=== PATIENT | female | born 1960 | race African-American/Black ===

== ENCOUNTER 2019-11-12 10:50 | Observation (INO) | payer OTHER, SELFPAY ==
[2019-11-12] VITALS (11 sets, daily range): BP systolic 116–152; BP diastolic 76–91; PULSE 54–67; RESP 15–20; TEMP 36.2–37.2; O2SAT 98–100; BMI 29.6
--- NOTE | ~2019-11-12 | NM_ITS ---
EXAMINATION: NM beryl stress w perfusion DATE: 11/13/2019 10:26 INDICATION: Chest pain. Hypertension. Tobacco abuse. TECHNIQUE: Rest images were obtained following intravenous administration of 10.6 mCi Tc99m tetrofosm in (Myoview). The patient was infused intravenously with Lexiscan (Regadenoson). Then, 30.4 mCi Tc99m tetrofosmin (Myoview) was administered intravenously, and stress images were obtained. Data was tray nstructed into short axis and horizontal and vertical long axis SPECT images. Gated SPECT images were also obtained. COMPARISON: None. FINDINGS: There is no definite reversible or fixed perfusion abnormality to suggest ischemia or infar ction. There is normal left ventricular chamber size, wall motion and ejection fraction. Left ventr icular ejection fraction measures >70%. IMPRESSION: 1. Normal myocardial perfusion at rest and during stress. 2. Left ventricular ejection fraction measuring >70%. Reviewed, dictated and finalized at location A.
--- NOTE | ~2019-11-12 | XR_ITS ---
EXAMINATION: XR chest 2V 11/12/2019 11:16 INDICATION: Chest pain with shortness of breath PROCEDURE: 2 view chest COMPARISON: 01/07/2019 FINDINGS: The lungs are clear. The cardiomediastinal silhouette is within normal limits. There are no pleural effusions. There is no pneumothorax suspected. IMPRESSION: 1: NO ACUTE CARDIOPULMONARY DISEASE. Reviewed, dictated and finalized at location A.
--- NOTE | 2019-11-12 10:56 | ED.GENADULT ---
HPI - General Adult General Chief complaint: Chest Pain Stated complaint: chest pain Time Seen by Provider: 11/12/19 10:51 History of Present Illness HPI narrative: Patient is a 59-year-old male who was referred to the ER by her PCP for chest pain. Patient began having chest pain yesterday that was a pressure in the center of her chest moving up into her neck bilaterally. This was pretty constant throughout the day yesterday and was worsened by any type of exertion or going up stairs. She had mild shortness of breath but no diaphoresis/nausea/vomiting. Patient has history of hypertension/hyperlipidemia/tobacco use and a brother who had an NC at the age of 60. Patient does not have a previous cardiac history herself. Today she has been having the pain as well but it is more intermittent. She reports her pain was 8/10 yesterday and today it was 3/10. No association with eating or drinking. Is not modified by position change. Related Data Home Medications Medication Instructions Recorded Confirmed aspirin [Adult Low Dose Aspirin] 81 mg PO DAILY 05/09/19 05/13/19 quinapril 20 mg PO DAILY 05/09/19 05/09/19 hydrochlorothiazide 25 mg PO DAILY 05/13/19 05/13/19 albuterol sulfate INHALATION 11/12/19 atorvastatin 10 mg PO DAILY 11/12/19 cholecalciferol (vitamin D3) 10 mcg PO DAILY 11/12/19 [Vitamin D3] fluticasone furoate-vilanterol INHALATION 11/12/19 [Breo Ellipta] multivitamin [Multiple Vitamins] 1 tablet PO DAILY 11/12/19 Allergies Allergy/AdvReac Type Severity Reaction Status Date / Time No Known Allergies Allergy Verified 11/12/19 11:01 Review of Systems Review of Systems: All systems reviewed & are unremarkable except as noted in HPI and below Constitutional: Constitutional: Denies chills, Denies fever(s) and Denies weakness ENT: Denies nasal congestion and Denies sore throat Cardiovascular: Cardiovascular: Reports chest pain, Denies rapid heart rate and Reports radiating jaw, neck or arm pain Respiratory: Respiratory: Denies cough, Reports dyspnea and Denies wheezing Gastrointestinal: Gastrointestinal: Denies abdominal pain, Denies nausea and Denies vomiting [facility] Past Medical History Medical History (Updated 11/12/19 @ 12:59 by Julio Menjivar MD) Asthma B12 deficiency Hyperlipidemia Hypertension Surgical History Surgical History (Updated 11/12/19 @ 09:42 by Cece Enamorado MD) H/O bilateral breast reduction surgery H/O colonoscopy 05-14-19 klucka/hyperplastic polyp ascending and descending colon /nonspecific colitis History of hysterectomy Family History Family History (Updated 05/08/18 @ 15:34 by DOCTOR UNKNOWN) Sibling Family history of transient ischemic attacks, Onset Age: 50 Acute myocardial infarction, Onset Age: 60 Family history of coronary artery disease, Onset Age: 53 Family history of malignant neoplasm of stomach Malignant neoplasm of prostate Mother Diabetes mellitus Hypertension Family history of congestive heart failure Other Family history of cardiovascular disease Family history of lung cancer Family history of lupus erythematosus Family history of malignant neoplasm of breast Social History Social History (Updated 05/13/19 @ 11:36 by Maria E Hardy, SPORTS INFORMATION DIRECTOR) Smoking packs per day: 0.75 Smoking cigarettes per day: 15.0 Years smoked: 30 Smoking pack-years: 22.50 Smoking status: Current every day smoker Tobacco type: cigarettes Alcohol intake: current Substance use: never Gender identity (if verbalized by the patient): Female Exam Narrative: Exam Narrative: GENERAL: Well-appearing, well-nourished, and in no acute distress. HEAD: Normocephalic, atraumatic. ENT: Mucous membranes moist. CHEST: Clear to auscultation. No respiratory distress. HEART: Regular rate and rhythm. Normal peripheral pulses. ABDOMEN: Soft, nontender, nondistended. EXTREMITIES: Normal range of motion. No edema. SKIN: Warm, dry, no
--- NOTE | 2019-11-12 10:58 | ECG_ITS ---
Measurements Intervals [place] Rate: 60 P: 25 OR: 176 QRS: 22 QRSD: 88 T: 26 QT: 379 QTc: 380 Interpretive Statements SINUS RHYTHM BASELINE WANDER- V2-V3 NORMAL ECG Electronically Signed On 11-12-2019 12:31:52 CDT by Burke Brooks D.O.
[2019-11-12] MEDS: ASPIRIN 81 MG CHEWABLE TABLET 324 MG PO (11:02)
[2019-11-12 11:13] LABS: Basophils Absolute Auto 0.1 K/mm3 (0.0-0.1); Basophils Percent Auto 0.9 % (0.2-1.2); Eosinophils Absolute Auto 0.1 K/mm3 (0-0.3); Eosinophils Percent Auto 1.4 % (0-4.4); Hemoglobin 14.6 g/dL (12.0-15.0); Immature Granulocyte Absolute 0.03 K/mm3 (0.00-0.031); Immature Granulocyte Percent A 0.3 % (0-0.5); Lymphocytes Absolute Auto 3.68 K/mm3 (0.9-3.2); Lymphocytes Percent Auto 40.2 % (18.3-44.2); Mean Corpuscular Hemoglobin 28.5 pg (26-34); Mean Platelet Volume 10.1 fl (7.4-10.4); Monocytes Absolute Auto 0.9 K/mm3 (0.1-0.6); Monocytes Percent Auto 10.1 % (2.6-8.5); Neutrophils Absolute Auto 4.3 K/mm3 (1.3-6.7); Neutrophils Percent Auto 47.1 % (45.5-73.1); Platelet Count Result 301 k/mm3 (150-375); Red Blood Count 5.12 M/mm3 (4.2-5.4); Red Cell Distribution Width 13.2 % (11.5-14.5); White Blood Count 9.2 K/mm3 (4.5-10.0)
[2019-11-12 11:23] LABS: Prothrombin Time 12.9 Seconds (11.1-14.7)
[2019-11-12 11:24] LABS: Partial Thromboplastin Time 30.5 SECONDS (22.3-36.8)
[2019-11-12 11:25] LABS: Blood Urea Nitrogen 14 mg/dL (7-17); Calcium 10.3 mg/dL (8.4-10.2); Carbon Dioxide 28 mmol/L (22-30); Chloride 105 mmol/L (98-107); Estimated CRCL calculation 71 ml/min; Estimated Glomerular Filt Rate > 60; Glucose 102 mg/dL (65-105); Potassium 3.1 mmol/L (3.4-5.0); Sodium 141 mmol/L (137-145)
[2019-11-12 11:37] LABS: Troponin I 0.018 ng/mL (0.000-0.034)
--- NOTE | 2019-11-12 14:05 | ECHO_ITS ---
Patient Info Name: Yolanda Franklin Age: 59 years : 1960 Gender: Female Ht: 65 in Wt: 178 lbs BSA: 1.95 m2 HR: 55 bpm BP: 128 / 76 mmHg Heart Rhythm: Bradycardia Technical Quality: Good Exam Date: 11/12/2019 2:45 PM Exam Location: [facility] Patient Status: Inpatient Admit Date: 11/12/2019 Staff Ordering Physician: Tesfaye Lezama MD (isa/odalys) Telecom Engineer: Benjie Zuniga RDCS Attending Provider: Robert Azevedo MD Exam Type: CA echo doppler color flow Study Info Indications R07.9 - Chest pain, unspecified Complete two-dimensional, color flow and Doppler transthoracic echocardiogram is performed. Strain analysis performed. History/Risk Factors Chest pain; HTN. Summary 1. Left ventricular systolic function is normal, estimated at 55-60%. 2. There is borderline increased left ventricular wall thickness. 3. There is mild aortic valve sclerosis. 4. There is no aortic valve stenosis. 5. There is no mitral valve regurgitation. 6. There is no pericardial effusion. Left Ventricle Left ventricular chamber dimension is normal. Left ventricular systolic function is normal, estimated at 55-60%. There is borderline increased left ventricular wall thickness. Left ventricular septal wall motion is normal. The left ventricular diastolic function is normal. Right Ventricle Right ventricular chamber dimension is normal. Right ventricular systolic function is normal. Left Atria Left atrial chamber dimension is normal. Right Atria Right atrial chamber dimension is normal. Aortic Valve The aortic valve is trileaflet. There is mild aortic valve sclerosis. There is no aortic valve stenosis. There is no aortic valve regurgitation. Pulmonic Valve The pulmonic valve is not well visualized. There is no pulmonic valve stenosis. There is no pulmonic regurgitation. Mitral Valve The mitral valve has normal leaflets. There is no mitral valve stenosis. There is no mitral valve regurgitation. Tricuspid Valve The tricuspid valve leaflets are normal. There is no significant tricuspid valve stenosis. There is no tricuspid valve regurgitation. No pulmonary hypertension. Pericardium/Pleural The pericardium appears normal. There is no pericardial effusion. Inferior Vena Cava Normal inferior vena cava with >50% collapse upon inspiration. Aorta The aortic root size at the sinus of Valsalva is normal. The prox ascending aorta size is normal. Left Ventricular Outflow Tract Name Value Normal LVOT 2D LVOT Diameter 1.7 cm LVOT Doppler LVOT Peak Gradient 4 mmHg LVOT Mean Gradient 2 mmHg LVOT VTI 20 cm LVOT VTI/AV VTI Ratio 0.6 LVOT Stroke Volume 45 ml LVOT CO 2.4 l/min LVOT CI 1.2 l/min/m2 Mitral Valve Name Value Normal --
--- NOTE | 2019-11-12 14:05 | PM.IMHP ---
H&P: HPI History of Present Illness Chief complaint: chest pain Narrative: Yolanda Franklin is a 59 year old female with h/o HTN, GERD and active tobacco abuse who presented with chest pain She reports chest pain that she describes as aching in the middle of the chest and radiates to her jaw. She had it all day long yesterday then resolved after she took ASA. It woke her up last night at 2 am so she went to see her PCP who referred her to go to ER. Pain resolved now. She denies nausea. She admits to diaphoresis that she contributes to menopause. She has stable exertional dyspnea with history of asthma and tobacco abuse. First trop is negative. Labs otherwise notable for K 3.1. EKG with normal sinus rhythm with no ST changes. She smokes ~ 2/3 pack a day. Brother had NM in his 60s. Review of Systems Review of Systems: All systems reviewed & are unremarkable except as noted in HPI and below Constitutional: Constitutional: Denies fatigue and Denies headache(s) Eyes: Eyes: Denies blurry vision ENT: Reports Normal hearing present and Denies headache(s) Cardiovascular: Cardiovascular: Reports chest pain, Denies diaphoresis, Denies pedal edema, Denies leg edema, Denies lightheadedness, Denies palpitations and Denies dyspnea Respiratory: Respiratory: Denies cough and Denies dyspnea Gastrointestinal: Gastrointestinal: Denies abdominal pain Musculoskeletal: Musculoskeletal: Denies back pain Neurologic: Reports Normal hearing present and Denies headache(s) Psychiatric: Psychiatric: Denies anxiety Endocrine: Endocrine: Denies fatigue and Denies palpitations [facility] Past Medical History Medical History Asthma B12 deficiency Hyperlipidemia Hypertension Surgical History Surgical History (Updated 11/12/19 @ 09:42 by Cece Enamorado MD) H/O bilateral breast reduction surgery H/O colonoscopy 05-14-19 klucka/hyperplastic polyp ascending and descending colon /nonspecific colitis History of hysterectomy Family History Family History (Updated 05/08/18 @ 15:34 by DOCTOR UNKNOWN) Sibling Family history of transient ischemic attacks, Onset Age: 50 Acute myocardial infarction, Onset Age: 60 Family history of coronary artery disease, Onset Age: 53 Family history of malignant neoplasm of stomach Malignant neoplasm of prostate Mother Diabetes mellitus Hypertension Family history of congestive heart failure Other Family history of cardiovascular disease Family history of lung cancer Family history of lupus erythematosus Family history of malignant neoplasm of breast Social History Social History (Updated 05/13/19 @ 11:36 by Maria E Hardy, AIR CONDITIONING SHEET METAL INSTALLER) Smoking packs per day: 0.75 Smoking cigarettes per day: 15.0 Years smoked: 30 Smoking pack-years: 22.50 Smoking status: Current every day smoker Tobacco type: cigarettes Alcohol intake: current Substance use: never Gender identity (if verbalized by the patient): Female Meds Home Medications and Allergies Home Medications Medication Instructions Recorded Confirmed Type aspirin [Adult Low Dose Aspirin] 81 mg PO DAILY 05/09/19 05/13/19 History quinapril 20 mg PO DAILY 05/09/19 05/09/19 History hydrochlorothiazide 25 mg PO DAILY 05/13/19 05/13/19 History albuterol sulfate INHALATION 11/12/19 History atorvastatin 10 mg PO DAILY 11/12/19 History cholecalciferol (vitamin D3) 10 mcg PO DAILY 11/12/19 History [Vitamin D3] fluticasone furoate-vilanterol INHALATION 11/12/19 History [Breo Ellipta] multivitamin [Multiple Vitamins] 1 tablet PO DAILY 11/12/19 History Allergies Allergy/AdvReac Type Severity Reaction Status Date / Time No Known Allergies Allergy Verified 11/12/19 11:01 Vital Signs Vital Signs - 24 hr 11/12/19 10:52 11/12/19 10:59 11/12/19 11:25 Temperature 36.9 C Pulse Rate 62 64 58 L Respiratory Rate 18 17 Blood Pressure 152/89 H 13
--- NOTE | 2019-11-12 14:29 | ECG_ITS ---
Measurements Intervals [place] Rate: 53 P: 17 AL: 178 QRS: 11 QRSD: 83 T: 17 QT: 425 QTc: 400 Interpretive Statements SINUS BRADYCARDIA BORDERLINE T WAVE ABNORMALITY- INFERIOR LEADS BORDERLINE ECG Electronically Signed On 11-12-2019 16:02:59 CDT by Burke Brooks D.O.
[2019-11-12 15:04] LABS: Troponin I 0.016 ng/mL (0.000-0.034)
--- NOTE | 2019-11-12 17:00 | ECG_ITS ---
Measurements Intervals [place] Rate: 58 P: 25 HI: 197 QRS: 11 QRSD: 86 T: 9 QT: 394 QTc: 389 Interpretive Statements SINUS BRADYCARDIA EARLY PRECORDIAL R/S TRANSITION BORDERLINE T WAVE ABNORMALITY- INFERIOR LEADS BORDERLINE ECG Electronically Signed On 11-13-2019 7:06:02 CDT by Burke Brooks D.O.
[2019-11-12 17:44] LABS: Troponin I 0.012 ng/mL (0.000-0.034)
[2019-11-13] VITALS (7 sets, daily range): BP systolic 126–134; BP diastolic 77–85; PULSE 56–70; RESP 14–17; TEMP 36.3; O2SAT 99–100
--- NOTE | 2019-11-13 | EST_ITS ---
Patient Info Name: Yolanda Franklin Age: 59 years : 1960 Gender: Female Ht: 65 in Wt: 178 lbs BSA: 1.95 m2 Exam Date: 11/13/2019 9:06 AM Patient Status: Outpatient Admit Date: 11/12/2019 Staff Ordering Physician: Robert Azevedo MD Attending Provider: Robert Azevedo MD Exercise Technologist: Rico Ndiaye RDCS, RT Exercise Physician: DR STEVEN Exam Type: CA stress beryl w NM Study Info Indications R07.89 - Other chest pain A regadenoson stress test was performed. Summary 1. Patient exercised on treadmill using jasmeet protocol for 5 minutes and 50 seconds and had to stop due to dyspnea and chest pressure. She could not achieve 85% of max age predicted heart rate hence stress test was converted to chemical stress test using 0.4 mg of regadenoson (lexiscan). Heart rate increase to 120 following lexiscan injection. EKG showed normal sinus rhythm at rest. No ST changes noted following lexiscan injection. Stress EKG is negative for ischemia. Nuclear part of the stress test to be reported separately. Protocol: Lexiscan Stress ECG Details Stage: REST Duration (min): 0 min : 50 sec HR (bpm): 65 SBP (mmHg): 118 DBP (mmHg): 84 Stage: REST Duration (min): 2 min : 0 sec HR (bpm): 66 SBP (mmHg): 118 DBP (mmHg): 84 Stage: STAGE 1 Duration (min): 0 min : 59 sec HR (bpm): 108 SBP (mmHg): 129 DBP (mmHg): 79 Stage: RECOVERY Duration (min): 1 min : 0 sec HR (bpm): 118 SBP (mmHg): 129 DBP (mmHg): 79 Stage: RECOVERY Duration (min): 2 min : 0 sec HR (bpm): 109 SBP (mmHg): 129 DBP (mmHg): 79 Stage: RECOVERY Duration (min): 3 min : 0 sec HR (bpm): 108 SBP (mmHg): 131 DBP (mmHg): 74 Stage: RECOVERY Duration (min): 4 min : 0 sec HR (bpm): 98 SBP (mmHg): 131 DBP (mmHg): 74 Stage: RECOVERY Duration (min): 4 min : 45 sec HR (bpm): 99 SBP (mmHg): 142 DBP (mmHg): 76 Rest HR: 66 bpm Peak HR: 119 bpm Rest Sys BP: 118 mmHg Peak Sys BP: 142 mmHg Max Pred HR: 163 bpm % Max Pred HR: 73 % Target HR: 139 bpm Max RPP: 16,898 bpm*mmHg Total Time: 1 min : 0 sec Rest Batres BP: 84 mmHg Peak Batres BP: 76 mmHg Total Dose: 0.4 mg Report Signatures
[2019-11-13] MEDS: ACETAMINOPHEN 325 MG TABLET 650 MG PO (04:16)
--- NOTE | 2019-11-13 10:20 | PC.NURSE ---
1015-pt has returned from the stress lab. No distress noted. AOx4. Will continue to monitor.
[2019-11-13] MEDS: ATORVASTATIN 10 MG TABLET PO (10:35)
[2019-11-13] MEDS: hydroCHLOROthiazide 25 MG TABLET PO (10:35)
[2019-11-13] MEDS: lisinopriL 20 MG TABLET PO (10:35)
[2019-11-13] MEDS: ASPIRIN 81 MG ENTERIC TABLET PO (10:35)
[2019-11-13] MEDS: NICOTINE (*PBKC) 14 MG PATCH 1 PATCH TRANSDERM (10:35)
--- NOTE | 2019-11-13 10:44 | PM.DS ---
DS: Diagnosis Admitting Diagnosis Admitting Diagnosis: Chest pain, unspecified Discharge Diagnosis (1) Chest pain: Code(s): R07.9 - Chest pain, unspecified Status: Acute Assessment and Plan: Patient presented with chest pain with mixed typical and atypical features of angina EKG shows no ischemic changes. First trop is negative Will follow up with 2 more troponin and serial EKG check 2D echocardiogram If repeat trop rule her out for VT then will proceed with exercise Nuc stress test in am for risk stratification and rule out ischemia given multiple cardiovascular risk factors including age, HTN and active tobacco abuse (2) Benign hypertension: Code(s): I10 - Essential (primary) hypertension Status: Acute Assessment and Plan: Resume antihypertensives as at home (3) Mixed hyperlipidemia: Code(s): E78.2 - Mixed hyperlipidemia Status: Acute Assessment and Plan: continue Atorvastatin (4) Nicotine dependence, unspecified, uncomplicated: Code(s): F17.200 - Nicotine dependence, unspecified, uncomplicated Status: Acute Assessment and Plan: Extensive smoking cessation counseling. okay to use nicotine patch DS: Summary Time Spent with Patient Time attestation: Total time spent providing and/or coordinating discharge services: 59 year old female with h/o HTN, GERD and active tobacco abuse who presented with chest pain She reports chest pain that she describes as aching in the middle of the chest and radiates to her jaw. She had it all day long yesterday then resolved after she took ASA. It woke her up last night at 2 am so she went to see her PCP who referred her to go to ER. Pain resolved now. She denies nausea. She admits to diaphoresis that she contributes to menopause. She has stable exertional dyspnea with history of asthma and tobacco abuse. trop was negative X3. Labs otherwise notable for K 3.1. EKG with normal sinus rhythm with no ST changes. She smokes ~ 2/3 pack a day. Brother had VT in his 60s. She underwent nuc stress test (exercised for 6 minutes but did not achieve 85% of target heart rate, stress test was converted to lexiscan) which showed no evidence of ischemia. She had 2D echo that showed normal EF and no valvular disease Pain is likely none cardiac and possibly musckeloskeletal. Follow up with cardiology in 2-4 weeks Continue antihypertenives as before. Smoking cessation counseling Exam Const: General: no acute distress Eyes: Sclera: sclerae normal Neck: Neck: no JVD Carotids: no bruits Resp: Effort & Inspection: normal respiratory effort Auscultation: clear to auscultation bilaterally Cardio: Rate: regular rate and not tachycardic Rhythm: regular rhythm Heart sounds: no gallops, no murmurs and no rubs Skin: General skin exam: normal color Neuro: Cranial nerves: Yes Normal hearing present Speech: normal speech Extrem: General: normal to inspection and no edema Psych: Affect: normal affect DS: Data Data Completed and Pending Labs on day of discharge: Labs from last 24 hours 11/12/19 11/12/19 11/12/19 17:07 14:21 11:06 WBC RBC Hgb Hct MCV MCH MCHC RDW Plt Count MPV Immature Gran % (Auto) Neut % (Auto) Lymph % (Auto) [place] % (Auto) Eos % (Auto) Baso % (Auto) Lymph # (Auto) [place] # (Auto) Eos # (Auto) Baso # (Auto) Abs Immat Gran (auto) Absolute Neuts (auto) Absolute Nucleated RBC Nucleated RBC % PT INR APTT Sodium 141 Potassium 3.1 L Chloride 105 Carbon Dioxide 28 BUN 14 Creatinine 0.80 Estim Creat Clear Calc 71 Estimated GFR > 60 Glucose 102 Calcium 10.3 H Troponin I 0.012 D 0.016 0.018 11/12/19 11/12/19 11:06 11:06 WBC 9.2 RBC 5.12 Hgb 14.6 Hct 43.0 MCV 84.0 MCH 28.5 MCHC 34.0 RDW 13.2 Plt Count 301 MPV 10.1 Immature Gran
[2019-11-13] MEDS: IBUPROFEN 400 MG TABLET PO (11:13)
[2019-11-13] MEDS: METOPROLOL TARTRATE 50 MG TAB PO (11:13)
--- NOTE | 2019-11-13 11:39 | PC.NURSE ---
1130-pt given D/C orders and instructions. Questions answered and verbalized understanding. AOx4. Ambulated per request to waiting vehicle. No distress noted or verbalized at time of D/C.
== END 2019-11-13 11:30 | disposition home or self-care (01) ==
LOC: ANHED 12:34 → ANHCPC 12:59
PROVIDERS: Admitting Provider Specialist; Emergency Provider Emergency Medicine; PCP Family Medicine; Visit Provider Internal Medicine
DX: R07.9 Chest pain, unspecified (principal); I10 Essential (primary) hypertension; K21.9 Gastro-esophageal reflux disease without esophagitis; J45.909 Unspecified asthma, uncomplicated; F17.210 Nicotine dependence, cigarettes, uncomplicated; E78.2 Mixed hyperlipidemia
CPT/HCPCS: 36415; 71046; 78452; 80048; 84484; 85025; 85610; 85730; 93005; 93017; 93306; 96374; 99285; A9270; A9502; G0378; J2785

== ENCOUNTER 2019-12-09 00:34 | Outpatient (CLI) | payer OTHER, SELFPAY ==
[2019-12-09 16:41] LABS: SARS-CoV-2 RNA PCR Negative
== END 2019-12-09 00:35 | disposition home or self-care (01) ==
LOC: ANHCOVIDDT 00:34
PROVIDERS: PCP Family Medicine; Visit Provider Internal Medicine Gastroenterology
DX: Z01.818 Encounter for other preprocedural examination (principal); Z11.59 Encounter for screening for other viral diseases
CPT/HCPCS: 87635; C9803; U0003

== ENCOUNTER 2019-12-11 02:13 | Day surgery (SDC) | payer OTHER, SELFPAY ==
[2019-12-06 09:28] VITALS: BMI 29.3
[2019-12-11 09:15] VITALS: BP 117/76; PULSE 59; RESP 16; TEMP 36.3; O2SAT 100; BMI 29.9
[2019-12-11] MEDS: LACTATED RINGERS 1,000 ML 150 ML IV CONT (09:32)
--- NOTE | 2019-12-11 10:19 | WPDANESEPPF ---
Anes - Initial Pre Proc Eval Procedure: Operation Date: 12/11/19 10:00 Proposed Procedures p Esophagogastroduodenoscopy - Warren Elmore MD Date/Time: 12/11/19 10:19 Surgeon: Warren Elmore MD Pre Op Diagnosis: Abdomen Pain Patient Data Age: 59 Gender: F Height: 5 ft 5 in Weight: 81.5 kg Last Vital Signs Temp 97.4 F L 12/11/19 09:15 Pulse 59 L 12/11/19 09:15 Resp 16 12/11/19 09:15 BP 117/76 12/11/19 09:15 Pulse Ox 100 12/11/19 09:15 Allergies Allergy/AdvReac Type Severity Reaction Status Date / Time No Known Allergies Allergy Verified 12/11/19 09:12 Home Medications Medication Instructions Recorded Confirmed Type aspirin [Adult Low Dose Aspirin] 81 mg PO DAILY 05/09/19 12/06/19 History albuterol sulfate 2 puff INHALATION Q4-6H PRN 11/12/19 12/06/19 History atorvastatin 10 mg PO DAILY 11/12/19 12/06/19 History multivitamin [Multiple Vitamins] 1 tablet PO DAILY 11/12/19 12/06/19 History hydrochlorothiazide 25 mg tablet 25 mg PO DAILY #90 tablet 11/14/19 12/06/19 Rx metoprolol tartrate 50 mg tablet 50 mg PO DAILY #90 tablet 11/14/19 12/06/19 Rx quinapril 20 mg tablet 20 mg PO DAILY #90 tablet 11/14/19 12/06/19 Rx cholecalciferol (vitamin D3) 1,250 1,250 mcg PO WEEKLY #12 cap 11/20/19 12/06/19 Rx mcg (50,000 unit) capsule nitroglycerin 0.4 mg sublingual 0.4 mg SUBLINGUAL Q5M PRN #20 11/20/19 12/06/19 Rx tablet tablet baclofen 5 mg tablet 5 mg PO TID #90 tablet 12/04/19 12/06/19 Rx Patient hx anesthesia problems: none Family hx anesthesia problems: none PMFSH Past Medical History Medical History (Updated 12/11/19 @ 10:19 by Bartolome Bai MD) Asthma B12 deficiency Benign hypertension Epigastric pain Nausea and vomiting in adult Surgical History Surgical History (Updated 11/12/19 @ 09:42 by Cece Enamorado MD) H/O bilateral breast reduction surgery H/O colonoscopy 05-14-19 klucka/hyperplastic polyp ascending and descending colon /nonspecific colitis History of hysterectomy Family History Family History (Updated 05/08/18 @ 15:34 by DOCTOR UNKNOWN) Sibling Family history of transient ischemic attacks, Onset Age: 50 Acute myocardial infarction, Onset Age: 60 Family history of coronary artery disease, Onset Age: 53 Family history of malignant neoplasm of stomach Malignant neoplasm of prostate Mother Diabetes mellitus Hypertension Family history of congestive heart failure Other Family history of cardiovascular disease Family history of lung cancer Family history of lupus erythematosus Family history of malignant neoplasm of breast Social History Social History (Updated 05/13/19 @ 11:36 by Maria E Hardy, ASSOCIATE PROFESSOR OF AUTOMATION) Smoking packs per day: 0.75 Smoking cigarettes per day: 15.0 Years smoked: 30 Smoking pack-years: 22.50 Smoking status: Current every day smoker Tobacco type: cigarettes Alcohol intake: current Substance use: never Gender identity (if verbalized by the patient): Female Anes - Eval Final PreProcedure Day of Procedure 12/11/19 10:19 Patient weight: normal Heart: regular rate and rhythm Lungs: clear to auscultation Airway: Mallampati scale class II Neurological: alert and oriented Last oral intake: >/= 8 hours ASA classification: III Emergent: no Anesthetic plan: proceed Anesthesia type and monitoring: general GIVS and standard monitoring Informed Consent: The patient's anesthetic plan and its attendant risks and benefits were discussed with the patient/family/POA. Questions were solicited and answers provided to the satisfaction of the patient/family/POA.
[2019-12-11] MEDS: BENZOCAINE (*SP) 60 ML SPRAY CAN (HURRICAINE) 1 SPRAY MUCOUS MEM (12:05)
[2019-12-11 12:22] VITALS: BP 153/103; PULSE 89; RESP 20; O2SAT 100
--- NOTE | 2019-12-11 12:23 | WPDHPUPDATE1 ---
History and Physical Update Update Date/Time: 12/11/19 12:23 History and Physical has been reviewed, including an updated exam of the patient. There are NO changes in the patient's condition. Risks, benefits, and alternatives have been discussed and questions answered. Patient agrees to proceed with procedure.
[2019-12-11 12:32] VITALS: BP 123/84; PULSE 83; RESP 20; O2SAT 100
[2019-12-11 12:42] VITALS: BP 118/82; PULSE 63; RESP 20; O2SAT 100
== END 2019-12-11 13:00 | disposition home or self-care (01) ==
PROVIDERS: PCP Family Medicine; Visit Provider Internal Medicine Gastroenterology
PROC: 0DJ08ZZ Inspection of Upper Intestinal Tract, Via Natural or Artificial Opening Endoscopic (ICD-10-PCS; CPT 43235; principal; 2019-12-11 10:00)
DX: K29.50 Unspecified chronic gastritis without bleeding (principal); K21.0 Gastro-esophageal reflux disease with esophagitis; R07.89 Other chest pain; J45.909 Unspecified asthma, uncomplicated; I10 Essential (primary) hypertension; E53.8 Deficiency of other specified B group vitamins; Z79.82 Long term (current) use of aspirin; F17.210 Nicotine dependence, cigarettes, uncomplicated
CPT/HCPCS: 43239; 88305; J2704; J7120

== ENCOUNTER 2020-01-02 10:14 | Outpatient (CLI) | payer OTHER, SELFPAY ==
--- NOTE | ~2020-01-02 | US_ITS ---
EXAMINATION: US abdomen limited EXAM DATE: 01/02/2020 10:39 INDICATION: Epigastric pain. TECHNIQUE: Multiple grayscale and Doppler images of the abdomen right upper quadrant were obtained (levi y a technologist who performed the scan) and subsequently reviewed. There is no prior study for nicky culp. FINDINGS: The pancreatic head and body are normal in appearance. The pancreatic tail is not visualized. The l iver has normal echogenicity and contour. There are no focal liver lesions identified. There is no evidence of intrahepatic biliary duct dilation. Portal venous flow was seen in the hepatopedal, nor mal direction and has normal Doppler waveform. No right-sided hydronephrosis. Common bile duct measures 5 mm, which is normal. The gallbladder wall is normal in thickness, with ex pected amount of distention. No sonographic evidence of pericholecystic fluid. There is no cholelit hiases. Technologist performing exam reports patient did not demonstrate sonographic Ndiaye's sign. Please note that this sign is less reliable in patients who have received pain medication. IMPRESSION: 1. Unremarkable abdominal ultrasound exam. Reviewed, dictated and finalized at location B.
== END 2020-01-02 10:15 | disposition home or self-care (01) ==
PROVIDERS: PCP Family Medicine; Visit Provider Internal Medicine Gastroenterology
DX: R07.89 Other chest pain (principal); R10.13 Epigastric pain
CPT/HCPCS: 76705

== ENCOUNTER → 2020-05-20 12:13 | Outpatient (CLI) | payer OTHER, SELFPAY ==
--- NOTE | ~2020-05-20 | MM_ITS ---
EXAMINATION: MM screening [facility] BI w cricket HISTORY: Screening mammogram TECHNIQUE: Craniocaudal and mediolateral oblique 3-D tomosynthesis images were obtained and synthetic 2-D images were generated. CAD analysis was submitted and interpreted. COMPARISON: 03/16/2019, 09/13/2017, 11/16/2015 BREAST PARENCHYMAL COMPOSITION: There are scattered areas of fibroglandular density. FINDINGS: Stable focal asymmetries of the breasts are consistent with benign findings. There is no ev idence of suspicious mass, calcification, or architectural distortion to suggest malignancy in either breast. There has been no suspicious interval change. IMPRESSION: 1. No mammographic evidence of malignancy. 2. Recommend routine screening mammography in one year. BI-RADS Category 2: Benign finding(s). Reviewed, dictated and finalized at location A. LE STROKE PREFORMER
== END ==
PROVIDERS: Visit Provider Nurse Practitioner
DX: Z12.31 Encounter for screening mammogram for malignant neoplasm of breast (principal)
CPT/HCPCS: 77063; 77067

== ENCOUNTER 2020-06-05 10:10 | Outpatient (CLI) | payer OTHER, SELFPAY ==
--- NOTE | ~2020-06-05 | CT_ITS ---
EXAMINATION:CT chest w con DATE: 06/05/2020 11:00 INDICATION: Other chest pain. TECHNIQUE: Computed tomography (CT) of the chest was performed with 75 mL Omnipaque 350 intravenous c ontrast. Automated exposure control and iterative reconstruction technique were employed. The dose-le ngth product (DLP) was 184.82 mGy-cm. COMPARISON: None. FINDINGS: There is mild atelectasis bilaterally. A calcified left lung nodule and calcified left diandra r and mediastinal lymph nodes are consistent with old granulomatous disease. There is a pneumatocele in right lower lobe. No pleural effusion. The heart size is normal. No pericardial effusion. There is mild aortic atherosclerosis. No aneurysm or dissection. There is no pulmonary embolus. There is mild thoracic spondylosis. IMPRESSION: 1. No specific etiology for the patient's symptoms. Reviewed, dictated and finalized at location A. ONAL EXTENSION SERVICE SPECIALIST
[2020-06-05 10:53] LABS: Estimated Glomerular Filt Rate > 60
== END 2020-06-05 10:11 | disposition home or self-care (01) ==
PROVIDERS: PCP Family Medicine; Visit Provider Internal Medicine Critical Care Medicine
DX: R07.89 Other chest pain (principal); J98.11 Atelectasis; J98.4 Other disorders of lung; I70.0 Atherosclerosis of aorta; M47.814 Spondylosis without myelopathy or radiculopathy, thoracic region
CPT/HCPCS: 71260; Q9967

== ENCOUNTER 2020-07-06 12:19 | Outpatient (CLI) | payer OTHER, SELFPAY ==
--- NOTE | 2020-07-07 14:02 | P.PCNPFT_ITS ---
PFT Interpretation Methacholine challenge test 07/06/2020 Prior Full PFTs of 01/07/2019 are noted to have been within normal limits. Methacholine was administered in increasing doses with this testing. At level 6, there was a 0% decline from baseline in terms of FEV1, but a 24% decline in terms of MMF. This decline was noted to reverse then following inhaled bronchod ilator. This is scored as a negative methacholine challenge test. (However, the substantial reduction in MMF noted at level 6 may prove clinically significant - it may raise the question of broncho-reactivity that is not fully substantiated otherwise). Huseyin Kearney MD MSc FACP FCCP
== END 2020-07-06 12:20 | disposition home or self-care (01) ==
LOC: ANHPFT 12:20
PROVIDERS: PCP Family Medicine; Visit Provider Internal Medicine Critical Care Medicine
DX: R07.89 Other chest pain (principal)
CPT/HCPCS: 94070; J7674

== ENCOUNTER 2020-10-02 15:11 | Emergency (ER) | payer OTHER, SELFPAY ==
--- NOTE | ~2020-10-02 | XR_ITS ---
EXAMINATION: XR chest 2V DATE: 10/02/2020 15:34 INDICATION: Chest pain. Asthma. TECHNIQUE: PA and lateral views of the chest were obtained. COMPARISON: Chest radiograph dated 11/12/2019 FINDINGS: Mildly decreased lung volumes relative to the prior radiographs. There are reticular opacities at the lung bases, left greater than right. No pleural effusion or pneumothorax. The cardiomediastinal silh ouette is normal. Visualized bones and soft tissues are unremarkable. IMPRESSION: 1. Mild reticular opacities at bilateral lung bases which could represent atelectasis, mild pulmonary edema or pneumonia. Reviewed, dictated and finalized at location A. IMPRESSION: 1. Mild reticular opacities at bilateral lung bases which could represent atele ctasis, mild pulmonary edema or pneumonia.
[2020-10-02 15:14] VITALS: BP 139/91; PULSE 93; RESP 18; TEMP 36.7; O2SAT 97
--- NOTE | 2020-10-02 15:20 | ED.SKABFB ---
HPI - Skin/Abscess/Foreign Bdy General Chief complaint: Skin/Abscess/Foreign Body Stated complaint: food bolus Time Seen by Provider: 10/02/20 15:16 Source: RN notes reviewed History of Present Illness HPI narrative: Patient presents emergency department from home for chest pain. Patient states that 3 days ago she was eating beef lomein when she swallowed a bite of the beef lomein and had pain in the lower midsternal chest she states it felt like it got stuck at the time she states she was able to pass it but since that time is had pain in the lower midsternal chest worse with eating and swallowing she states she is able to tolerate foods and liquids she denies any fevers or chills shortness of breath nausea vomiting or any other symptoms Related Data Home Medications Medication Instructions Recorded Confirmed aspirin [Adult Low Dose Aspirin] 81 mg PO DAILY 05/09/19 07/01/20 albuterol sulfate 2 puff INHALATION Q4-6H PRN 11/12/19 07/01/20 atorvastatin 10 mg PO DAILY 11/12/19 07/01/20 multivitamin [Multiple Vitamins] 1 tablet PO DAILY 11/12/19 07/01/20 Allergies Allergy/AdvReac Type Severity Reaction Status Date / Time No Known Allergies Allergy Verified 05/20/20 11:08 Review of Systems Review of Systems: Narrative: Gen.: Denies fevers or chills Eyes: Denies eye pain or visual change ENT: Denies congestion Respiratory: Denies shortness of breath or cough CV: Reports lower midsternal chest pain worse with swallowing GI: Denies abdominal pain nausea, emesis or diarrhea Musculoskeletal: Denies back pain or muscle pain Neuro: Denies numbness, tingling, weakness or focal weakness Skin: Denies rash Except as documented, all other systems reviewed and negative FORMERLY [facility], 1928–1983 Past Medical History Medical History (Updated 10/02/20 @ 17:13 by Dalton Cope DO) Asthma B12 deficiency Benign hypertension Chest pain Surgical History Surgical History H/O bilateral breast reduction surgery H/O colonoscopy 05-14-19 [place]/hyperplastic polyp ascending and descending colon /nonspecific colitis History of esophagogastroduodenoscopy (EGD) History of hysterectomy 6.3.20 normal except for gastritis Family History Family History Sibling Family history of transient ischemic attacks, Onset Age: 50 Acute myocardial infarction, Onset Age: 60 Family history of coronary artery disease, Onset Age: 53 Family history of malignant neoplasm of stomach Malignant neoplasm of prostate Mother Diabetes mellitus Hypertension Family history of congestive heart failure Other Family history of cardiovascular disease Family history of lung cancer Family history of lupus erythematosus Family history of malignant neoplasm of breast Social History Social History Smoking packs per day: 0.75 Smoking cigarettes per day: 15.0 Years smoked: 30 Smoking pack-years: 22.50 Smoking status: Current every day smoker Tobacco type: cigarettes Alcohol intake: current Substance use: never Gender identity (if verbalized by the patient): Female Exam Narrative: Exam Narrative: APPEARANCE: No acute distress, nontoxic, resting in bed EYES: EOMI HEENT: Normocephalic, atraumatic, OMM RESPIRATORY: No respiratory distress Clear to auscultation bilaterally with no rhonchi wheezing or rales. CARDIOVASCULAR: Regular rate and rhythm without murmurs rubs or gallops. ABDOMINAL: Soft, nontender, nondistended, no rebound or guarding MUSCULOSKELETAl: Moves all extremities. No clubbing, cyanosis or edema. NEURO: Awake and alert. Following commands, speech normal, no focal deficits SKIN:: Warm, dry. No rashes lesions or abrasions PSYCHIATRIC: Normal affect/mood, Course Course Emergency Course: Reviewed old records Patient states she is feeling better following GI cocktail Discussed with
--- NOTE | 2020-10-02 16:07 | ECG_ITS ---
Measurements Intervals [place] Rate: 64 P: 17 TX: 164 QRS: 19 QRSD: 92 T: 31 QT: 398 QTc: 412 Interpretive Statements SINUS RHYTHM BASELINE ARTIFACT- I, II, III, AVR, AVL, AVF, V1, V4-V6 NORMAL ECG Electronically Signed On 10-02-2020 18:14:23 CDT by Burke Brooks D.O.
[2020-10-02] MEDS: PANTOPRAZOLE 40 MG TABLET PO (17:25)
[2020-10-02 17:26] VITALS: BP 123/78; PULSE 78; RESP 18; O2SAT 99
== END 2020-10-02 17:27 | disposition home or self-care (01) ==
PROVIDERS: Emergency Provider Emergency Medicine; PCP Family Medicine
DX: K21.9 Gastro-esophageal reflux disease without esophagitis (principal); J45.909 Unspecified asthma, uncomplicated; I10 Essential (primary) hypertension; E53.8 Deficiency of other specified B group vitamins; F17.210 Nicotine dependence, cigarettes, uncomplicated; R91.8 Other nonspecific abnormal finding of lung field; Z79.82 Long term (current) use of aspirin
CPT/HCPCS: 71046; 93005; 99283; A9270

== ENCOUNTER 2021-06-23 07:25 | Outpatient (CLI) | payer OTHER, SELFPAY ==
--- NOTE | ~2021-06-23 | US_ITS ---
EXAMINATION: US thyroid EXAM DATE: 06/23/2021 07:51 INDICATION: E04.9 - Nontoxic goiter, unspecified . TECHNIQUE: Multiple grayscale and Doppler images of the thyroid were obtained (by a technologist who performed the scan) and subsequently reviewed. Individual nodules and recommendations may be reporte d in accordance with TI-RADS system as designated by the 2017 ACR White Paper TI-RADS committee. The re is no prior study for comparison. FINDINGS: The right thyroid lobe measures 5.7 x 2.0 x 2.1 cm, the left thyroid lobe measures 5.6 x 2 point by 2 .1 cm. Only mildly heterogeneous thyroid parenchyma overall, with several scattered nodules. The largest right thyroid lobe nodule measures 1.6 x 0.8 x 1.4 cm, in the inferior pole, solid (2 poi nts), hypoechoic (2 points), wider than tall, smooth well defined margin, without echogenic foci, cat egory TR4 for this nodule. This is large enough to recommend ultrasound-guided biopsy. Largest solid nodule also category TR 4 in the right there are lobe measures 9 x 6 x 8 mm, can be fol lowed up. IMPRESSION: 1. Multinodular goiter. 2. Consider ultrasound-guided FNA of largest right thyroid lobe nodule. Reviewed, dictated and finalized at location B. YSIS ENGINEER
== END 2021-06-23 07:26 | disposition home or self-care (01) ==
LOC: ANHIMG 07:27
PROVIDERS: PCP Family Medicine; Visit Provider Family Medicine
DX: E04.2 Nontoxic multinodular goiter (principal)
CPT/HCPCS: 76536

== ENCOUNTER 2021-07-06 12:35 | Outpatient (CLI) | payer OTHER, SELFPAY ==
--- NOTE | ~2021-07-06 | US_ITS ---
EXAMINATION: US FNA w image guidance DATE: 07/06/2021 13:43 INDICATION: Nontoxic single thyroid nodule TECHNIQUE: A time-out was performed to verify the patient's name, date of , and procedure to be performed . The procedure and its benefits and risks were discussed with the patient. Risks specifically discus sed included bleeding and infection. The patient understood the risks and agreed to proceed. The neck was prepped and draped in the usual sterile manner. 3 mL 1% lidocaine was used for local anesthesia . 6 passes were made with a 25G needle into the lesion. Appropriate needle location was documented with continuous sonographic guidance. The specimens were passed to the cardiovascular radiologic technologist in the room. A sterile bandage was applied. There were no immediate complications. FINDINGS: Grayscale ultrasound images demonstrate biopsy needles advanced into a 1.7 cm solid right thyroid nod ule. IMPRESSION: 1. Successful ultrasound-guided fine needle aspiration of the largest 1.7 cm solid right thyroid nod ule of concern. Reviewed, dictated and finalized at location A. BING MACHINE OPERATOR IMPRESSION: 1. Successful ultrasound-guided fine needle aspiration of the largest 1.7 cm s olid right thyroid nodule of concern.
== END 2021-07-06 12:36 | disposition home or self-care (01) ==
LOC: ANHIMG 12:37
PROVIDERS: PCP Family Medicine; Visit Provider Otolaryngology
DX: E04.1 Nontoxic single thyroid nodule (principal)
CPT/HCPCS: 10005; 88173; 88305

== ENCOUNTER 2022-03-17 07:34 | Outpatient (CLI) | payer OTHER, SELFPAY ==
--- NOTE | ~2022-03-17 | MM_ITS ---
EXAMINATION: MM screening [facility] BI w cricket HISTORY: Screening mammogram TECHNIQUE: Craniocaudal and mediolateral oblique 3-D tomosynthesis images were obtained and synthetic 2-D images were generated. Bilateral rotated lateral CC views. CAD analysis was submitted and interp reted. COMPARISON: 05/20/2020, 03/16/2019, 09/13/2017 bilateral screening mammogram examinations BREAST PARENCHYMAL COMPOSITION: There are scattered areas of fibroglandular density. FINDINGS: Stable fibroglandular asymmetry. History of benign open right breast biopsy. History of keke ateral reduction mammoplasty 2007 There is no evidence of suspicious mass, calcification, or architec tural distortion to suggest malignancy in either breast. There has been no suspicious interval change . IMPRESSION: 1. No mammographic evidence of malignancy. 2. Recommend routine screening mammography in one year. BI-RADS Category 2: Benign finding(s). Reviewed, dictated and finalized at location A.
== END 2022-03-17 07:35 | disposition home or self-care (01) ==
LOC: ANHIMG 07:35
PROVIDERS: PCP Family Medicine; Visit Provider Obstetrics & Gynecology Gynecology
DX: Z12.31 Encounter for screening mammogram for malignant neoplasm of breast (principal)
CPT/HCPCS: 77063; 77067

== ENCOUNTER → 2023-02-06 08:15 | Outpatient (CLI) | payer OTHER, SELFPAY ==
--- NOTE | ~2023-02-06 | CT_ITS ---
EXAMINATION: CT lung screening DATE: 02/06/2023 08:37 INDICATION: screening TECHNIQUE: Computed tomography (CT) of the chest was performed without intravenous contrast. Addition al 3D reconstructions utilizing coronal maximum intensity projection (MIP) were performed. Automated exposure control and iterative reconstruction technique were employed. The dose-length product was 14 1.31 mGy-cm. COMPARISON: 06/05/2020 FINDINGS: No suspicious pulmonary nodules, pneumonia, pulmonary edema or pleural effusion. Heart size is normal . No pericardial effusion. Thoracic aorta is normal in caliber. Calcified left hilar and mediastinal lymph nodes consistent with old granulomatous disease. No pathologically enlarged thoracic lymphadeno kera. Visualized upper abdomen is unremarkable. Mild upper thoracic dextrocurvature with mild spondy losis. IMPRESSION: 1. Lung-RADS category 1: Negative. Continue annual screening with noncontrast low-dose chest CT in 12 months. Reviewed, dictated and finalized at location B. IMPRESSION: 1. Lung-RADS category 1: Negative. Continue annual screening with noncontrast l ow-dose chest CT in 12 months.
== END ==
PROVIDERS: PCP Family Medicine; Visit Provider Family Medicine
DX: Z12.2 Encounter for screening for malignant neoplasm of respiratory organs (principal); F17.210 Nicotine dependence, cigarettes, uncomplicated
CPT/HCPCS: 71271

== ENCOUNTER 2023-03-03 14:49 | Outpatient (CLI) | payer OTHER, SELFPAY ==
--- NOTE | ~2023-03-03 | MMUS_ITS ---
EXAMINATION: MM diagnostic [facility] BI w cricket, US breast RT limited HISTORY: Right breast pain TECHNIQUE: Craniocaudal, mediolateral, and mediolateral oblique 3-D tomosynthesis images of the right breast were performed and synthetic 2-D images were generated. CAD analysis was submitted and interp reted. High resolution limited right breast ultrasound was performed. COMPARISON: 03/17/2022, 05/20/2020, 03/16/2019 BREAST PARENCHYMAL COMPOSITION: There are scattered areas of fibroglandular density. FINDINGS: MAMMOGRAPHIC FINDINGS: Again noted are stable focal asymmetries of the breasts, consistent with benign findings. No suspicio us mass, calcification, or architectural distortion are identified. No mammographic correlate is iden tified for the patient's reported right breast pain. ULTRASOUND: There is no evidence of focal abnormal solid or cystic mass in the vicinity of the patient's reported right breast pain. IMPRESSION: 1. No specific mammographic or sonographic correlate is identified for the patient's reported right b reast pain. Further evaluation at this time should be based on clinical assessment. Continued follow- up physical examination is recommended. 2. Recommend routine screening mammography in one year. BI-RADS Category 2: Benign finding(s). Reviewed, dictated and finalized at location A. IMPRESSION: 1. No specific mammographic or sonographic correlate is identified for the lionel ent's reported right breast pain. Further evaluation at this time should be bas ed on clinical assessment. Continued follow-up physical examination is recommen ded. 2. Recommend routine screening mammography in one year. BI-RADS Category 2: Benign finding(s).
== END 2023-03-03 14:50 ==
PROVIDERS: PCP Nurse Practitioner; Visit Provider Nurse Practitioner
DX: N64.4 Mastodynia (principal)
CPT/HCPCS: 76642; 77062; 77066; G0279

== ENCOUNTER 2024-01-31 14:42 | Outpatient (CLI) | payer OTHER, SELFPAY ==
[2024-01-31 20:20] LABS: Alanine Aminotransferase 24 U/L (6-35); Alkaline Phosphatase 76 U/L (38-126); Anion Gap 8 mmol/L (4-12); Aspartate Amino Transferase 33 U/L (14-36); Bilirubin,Total 0.3 mg/dL (0.2-1.3); Blood Urea Nitrogen 20 mg/dL (7-17); Calcium 9.4 mg/dL (8.4-10.2); Carbon Dioxide 31 mmol/L (22-30); Chloride 101 mmol/L (98-107); Estimated Glomerular Filt Rate > 60; Glucose 120 mg/dL (65-110); Potassium 3.1 mmol/L (3.4-5.0); Sodium 140 mmol/L (137-145)
[2024-01-31 20:37] LABS: Hemoglobin A1C 6.7 % (<5.7)
== END 2024-01-31 14:43 | disposition home or self-care (01) ==
LOC: ANHGOSHLAB 14:44
PROVIDERS: PCP Family Medicine; Visit Provider Family Medicine
DX: E11.9 Type 2 diabetes mellitus without complications (principal)
CPT/HCPCS: 36415; 80053; 83036

== ENCOUNTER 2024-04-24 11:50 | Outpatient (CLI) | payer OTHER, SELFPAY ==
--- NOTE | ~2024-04-24 | XR_ITS ---
Lumbosacral Spine: AP and lateral views Clinical History: Pain Findings: The normal lordotic curve is maintained. The vertebral bodies and posterior elements are i ntact. The intervertebral disc spaces are preserved. Mild facet joint degenerative changes are prese nt. The sacroiliac joints are normally outlined. Impression: Mild facet arthropathy. Reviewed, dictated and finalized at location . Impression: Mild facet arthropathy.
== END 2024-04-24 11:51 | disposition home or self-care (01) ==
PROVIDERS: PCP Family Medicine; Visit Provider Nurse Practitioner Family
DX: M47.817 Spondylosis without myelopathy or radiculopathy, lumbosacral region (principal); M54.16 Radiculopathy, lumbar region
CPT/HCPCS: 72100

== ENCOUNTER 2024-05-16 07:28 | Outpatient (CLI) | payer OTHER, SELFPAY ==
--- NOTE | ~2024-05-16 | MM_ITS ---
EXAMINATION: MM screening [facility] BI w cricket HISTORY: Screening TECHNIQUE: Craniocaudal and mediolateral oblique 3-D tomosynthesis images were obtained and synthetic 2-D images were generated. CAD analysis was submitted and interpreted. COMPARISON: Comparison to multiple prior studies sequentially, with oldest reviewed study dated 03/2016. BREAST PARENCHYMAL COMPOSITION: Not dense: There are scattered areas of fibroglandular density. FINDINGS: There is a new focal mass in the upper central aspect of the left breast, posterior third. The right breast is stable without evidence for malignancy. IMPRESSION: 1. New focal left breast mass upper central breast, posterior third. 2. Additional mammographic views and possible breast ultrasound are recommended. BI-RADS Category 0: Incomplete: Needs additional imaging evaluation. Reviewed, dictated and finalized at location B. WEIGHER IMPRESSION: 1. New focal left breast mass upper central breast, posterior third. 2. Additional mammographic views and possible breast ultrasound are recommended . BI-RADS Category 0: Incomplete: Needs additional imaging evaluation.
== END 2024-05-16 07:29 | disposition home or self-care (01) ==
PROVIDERS: PCP Family Medicine; Visit Provider Nurse Practitioner Women's Health
DX: Z12.31 Encounter for screening mammogram for malignant neoplasm of breast (principal); R92.8 Other abnormal and inconclusive findings on diagnostic imaging of breast
CPT/HCPCS: 77063; 77067

== ENCOUNTER 2024-06-11 07:54 | Outpatient (CLI) | payer OTHER, SELFPAY ==
--- NOTE | ~2024-06-11 | MMUS_ITS ---
EXAMINATION: MM diagnostic [facility] LT w cricket, US breast LT complete HISTORY: Follow-up left breast asymmetry TECHNIQUE: Additional 3-D tomosynthesis images of the left breast were performed and synthetic 2-D im ages were generated. CAD analysis was submitted and interpreted. High resolution complete left breast ultrasound was performed. COMPARISON: Comparison to multiple prior studies sequentially, with oldest reviewed study dated 01/2018. BREAST PARENCHYMAL COMPOSITION: Not dense: There are scattered areas of fibroglandular density. FINDINGS: MAMMOGRAPHIC FINDINGS: There is a small radiolucent mass in the upper central aspect of the left breast posteriorly. There a re no suspicious calcifications or architectural distortion. ULTRASOUND: Complete US of all 4 quadrants of the left Breast/s and retroareolar region was reviewed. left 11:00, 8 cm from the nipple there is an oval hypoechoic 3 mm mass with low level internal echoes, likely co rresponding to the mammographic finding. IMPRESSION: 1. Probable benign 3 mm left breast mass at 11:00, 8 cm from the nipple. 2. Recommend 6 month follow-up diagnostic left mammogram and Limited left breast ultrasound BI-RADS category 3, probably benign findings. Reviewed, dictated and finalized at location B. ICAL CARE CNS IMPRESSION: 1. Probable benign 3 mm left breast mass at 11:00, 8 cm from the nipple. 2. Recommend 6 month follow-up diagnostic left mammogram and Limited left breas t ultrasound BI-RADS category 3, probably benign findings.
== END 2024-06-11 07:55 | disposition home or self-care (01) ==
LOC: MICIMG 07:55
PROVIDERS: PCP Family Medicine; Visit Provider Nurse Practitioner Women's Health
DX: R92.8 Other abnormal and inconclusive findings on diagnostic imaging of breast (principal); N63.20 Unspecified lump in the left breast, unspecified quadrant
CPT/HCPCS: 76641; 77061; 77065; G0279

== ENCOUNTER 2025-01-02 07:41 | Outpatient (CLI) | payer OTHER, SELFPAY ==
--- NOTE | ~2025-01-02 | MMUS_ITS ---
EXAMINATION: MM diagnostic [facility] LT w cricket, US breast LT limited HISTORY: Six-month follow-up exam TECHNIQUE: 3-D tomosynthesis images of the left breast were performed and synthetic 2-D images were g enerated. CAD analysis was submitted and interpreted. High resolution limited left breast ultrasound was performed. COMPARISON: 06/11/2024, 05/16/2024, 03/03/2023 BREAST PARENCHYMAL COMPOSITION:Not Dense. There are scattered areas of fibroglandular density. FINDINGS: MAMMOGRAPHIC FINDINGS: Stable parenchymal pattern of the left breast. Stable 3 mm mass at the upper, central, posterior left breast. No suspicious microcalcification. ULTRASOUND: Stable 4 mm hypoechoic ovoid mass at the 11 position left breast, 8 cm in the nipple. IMPRESSION: Stable 4 mm hypoechoic ovoid mass at the 11:00 position left breast, as detailed above, most compati ble with benign finding. BI-RADS Category 2: Benign finding(s). Reviewed, dictated and finalized at location M. IMPRESSION: Stable 4 mm hypoechoic ovoid mass at the 11:00 position left breast, as detail ed above, most compatible with benign finding. BI-RADS Category 2: Benign finding(s).
== END 2025-01-02 07:42 | disposition home or self-care (01) ==
LOC: MICIMG 07:41
PROVIDERS: PCP Family Medicine; Visit Provider Family Medicine
DX: R92.8 Other abnormal and inconclusive findings on diagnostic imaging of breast (principal)
CPT/HCPCS: 76642; 77061; 77065; G0279

== ENCOUNTER 2025-05-23 14:50 | Outpatient (CLI) | payer OTHER, SELFPAY ==
--- NOTE | ~2025-05-23 | US_ITS ---
EXAMINATION: US thyroid DATE: 05/23/2025 15:15 INDICATION: Nodules TECHNIQUE: Multiple ultrasound images of the thyroid were obtained. COMPARISON: June 23, 2021 FINDINGS: The right thyroid lobe measures 5.8 x 2.5 x 2.1 cm cm. The left thyroid lobe measures 5.4 x 2.0 x 2.2 cm cm. In the midpole of the right lobe, a 1.9 x 1.2 x 1.3 TR 4 complex nodule is noted just slightly increased in size compared to the previous study when it measured 1.6 x 0.8 x 1.4 cm. In the left lobe a 6 x 5 x 5 mm subcentimeter TR 4 lesion is noted. No other lesions or masses seen. Echotexture and vascular flow for the thyroid otherwise appears normal. IMPRESSION: 1. Slight increased size of 1.9 cm right midpole nodule with TR 4 features. Correlate with FNA results. 2. Subcentimeter TR 4 lesion in the left lobe too small to reliably sample and should continue to be surveilled, with twelve-month follow-up ultrasound. Recommended date for next exam on or about May 232025. Reviewed, dictated and finalized at location A. L CLERK IMPRESSION: 1. Slight increased size of 1.9 cm right midpole nodule with TR 4 features. Cor relate with FNA results. 2. Subcentimeter TR 4 lesion in the left lobe too small to reliably sample and should continue to be surveilled, with twelve-month follow-up ultrasound. Recom mended date for next exam on or about May [id number].
== END 2025-05-23 14:51 | disposition home or self-care (01) ==
LOC: MICIMG 14:50
PROVIDERS: PCP Family Medicine; Visit Provider Family Medicine
DX: E04.1 Nontoxic single thyroid nodule (principal)
CPT/HCPCS: 76536

== ENCOUNTER 2025-07-04 10:10 | Outpatient (CLI) | payer OTHER, SELFPAY ==
--- NOTE | ~2025-07-04 | MM_ITS ---
EXAMINATION: MM screening [facility] BI w cricket HISTORY: Screening TECHNIQUE: Craniocaudal and mediolateral oblique 3-D tomosynthesis images were obtained and synthetic 2-D images were generated. CAD analysis was submitted and interpreted. COMPARISON: Comparison to multiple prior studies sequentially, with oldest reviewed study dated 05/20/2020. BREAST PARENCHYMAL COMPOSITION: Not dense: There are scattered areas of fibroglandular density. FINDINGS: There is no evidence of suspicious mass, calcification, or architectural distortion to suggest malignancy in either breast. There has been no suspicious interval change. IMPRESSION: 1. No mammographic evidence of malignancy. 2. Recommend routine screening mammography in one year. BI-RADS Category 1: Negative Reviewed, dictated and finalized at location O. NATOR
== END 2025-07-04 10:11 | disposition home or self-care (01) ==
LOC: MICIMG 10:10
PROVIDERS: PCP Family Medicine; Visit Provider Family Medicine
DX: Z12.31 Encounter for screening mammogram for malignant neoplasm of breast (principal)
CPT/HCPCS: 77063; 77067